=== PATIENT | female | born 1985 | race American Indian/Alaskan Native ===

== ENCOUNTER 2021-05-01 15:54 | Emergency (ER) | payer MEDICAID ==
--- NOTE | 2021-05-01 19:39 | Emergency Department Report ---
ED Female HPI - General Chief complaint: Abdominal Pain Stated complaint: Abdominal Pain Time Seen by Provider: 05/01/21 19:23 Source: patient Mode of arrival: Ambulatory Limitations: No Limitations - History of Present Illness Initial comments: The patient was evaluated in the emergency department for symptoms described in the history of present illness. He/she was evaluated in the context of the global COVID-19 pandemic, which necessitated consideration that the patient might be at risk for infection with the virus that causes COVID-19. Insti tutional protocols and algorithms that pertain to the evaluation of patients at risk for COVID-19 are in a state of rapid change based on information released by regulatory bodies including the CDC and federal and state organizations. These policies and algorithms were followed during the patient's care in the emergency department. Please note that these policies, procedures and recommendations changed on a rapid basis. 35-year-old morbid obese -[place] female presents to the emergency room complaining of sharp pelvic pain. Patient states she took a home test x2 and both were positive. Patient reports she has a history of fibroids and a felt like pressure. Patient reports that she recent delivered a baby 5 months ago. She is 8 para 3 with 5 miscarriages. Patient denies any vaginal bleeding denies any vaginal discharge. No chest pain no shortness of breathing no nausea no vomiting or diarrhea. MD Complaint: pelvic pain Onset/Timin -: days(s) Location: suprapubic Radiation: suprapubic Severity scale (0 -10): 8 Quality: sharp Consistency: intermittent Improves with: none Worsens with: none Are you Now?: Yes (Irregular menstrual cycle delivered 5 months ago) Associated Symptoms: denies other symptoms - Related Data Sexually active: Yes : 8 Para: 3 A: 5 Previous Rx's Medication Instructions Recorded Last Taken Type Nitrofurantoin [place]/M-Cryst 100 mg PO Q12HR 7 Days #14 capsule 05/01/21 Unknown Rx [Macrobid CAP] Vit-Fe Fumar-FA [ 1 tab PO QDAY #90 tablet 05/01/21 Unknown Rx Vitamin] Allergies Allergy/AdvReac Type Severity Reaction Status Date / Time No Known Allergies Allergy Unverified 05/01/21 16:56 ED Review of Systems ROS: Stated complaint: Abdominal Pain Other details as noted in HPI Comment: All other systems reviewed and negative ED Past Medical Hx - Past Medical History Previous Medical History?: Yes Additional medical history: FIBRIODS - Surgical History Past Surgical History?: Yes - Medications Home Medications: Home Medications Medication Instructions Recorded Confirmed Last Taken Type Nitrofurantoin [place]/M-Cryst 100 mg PO Q12HR 7 Days #14 capsule 05/01/21 Unknown Rx [Macrobid CAP] Vit-Fe Fumar-FA [ 1 tab PO QDAY #90 tablet 05/01/21 Unknown Rx Vitamin] ED Physical Exam - General Limitations: No Limitations General appearance: alert, in no apparent distress - Head Head exam: Present: atraumatic, normocephalic - Eye Eye exam: Present: normal appearance - ENT ENT exam: Present: mucous membranes moist - Neck Neck exam: Present: normal inspection - Respiratory Respiratory exam: Present: normal lung sounds bilaterally. Absent: respiratory distress - Cardiovascular Cardiovascular Exam: Present: regular rate, normal rhythm. Absent: systolic murmur, diastolic murmur, rubs, gallop - GI/Abdominal GI/Abdominal exam: Present: soft, normal bowel sounds - Extremities Exam Extremities exam: Present: normal inspection - Back Exam Back exam: Present: normal inspection - Neurological Exam Neurological exam: Present: alert, oriented X3 - Psychiatric Psychiatric exam: Present: normal affect, normal mood - Skin Skin exam: Present: warm, dry, intact, normal color. Absent: rash ED Course Vital Signs 05/01/21 17:00 Temperature 97.7 F Pulse Rate 109 H Respiratory 18 Rate Blood Pressure 122/80 [Right] O2 Sat by Pulse 98 Oximetry ED Medical Decision Making - Lab Data Result diagrams: 05/01/21 19:36 05/01/21 19:36 - Radiology Data Radiology results: report reviewed [facility] [address] [place] [address] Ultrasound Report Signed Patient: MARY INGRAM MR#: [id number] 54 : 1985 Acct:[id number] Age/Sex: 35 / F ADM Date: 05/01/21 Loc: ED Attending Dr: Ordering Physician: JR WORKMAN Date of Service: 05/01/21 Procedure(s): US OB transvaginal Accession Number(s): [id number] cc: JR WORKMAN ULTRASOUND PELVIS INDICATION: +preg at home pelvic pain. TECHNIQUE: Transabdominal. Duplex Color Doppler used: Yes. COMPARISON: None available FINDINGS: Uterus: Present. Size: 10.8 x 8.8 x 9.5 cm. Endometrial complex: Viable intrauterine dated 11 weeks 2 days. Clinical age is 10 weeks. heart tones are 167 bpm. Mass lesions: None. Additional findings: None. Right Ovary -- Normal. Blood flow: Normal. Cyst or mass: None. Left Ovary--nonvisualized. Urinary Bladder: Normal. Free Fluid: None. Additional Findings: None. IMPRESSION: 1. Viable intrauterine dated 11 weeks 2 days without complication. 2. Left ovary nonvisualized. No left adnexal abnormality. Signer Name: Geo Bey MD Signed: 05/01/2021 9:17 PM Workstation Name: [id number] Transcribed By: ZENY Dictated By: Geo Bey MD Electronically Authenticated By: Geo Bey MD Signed Date/Time: 05/01/212116 DD/ 14 TD/TT: Print Cancel - Medical Decision Making 35-year-old morbid obese -[place] female presents to the emergency room complaining of sharp pelvic pain. Patient states she took a home test x2 and both were positive. Patient reports she has a history of fibroids and a felt like pressure. Patient reports that she recent delivered a baby 5 months ago. She is 8 para 3 with 5 miscarriages. Patient denies any vaginal bleeding denies any vaginal discharge. No chest pain no shortness of breathing no nausea no vomiting or diarrhea. Ultrasound shows that you are 11 weeks . You have a mild urinary tract infection which I will treat. Is very important for you to follow-up with an [facility] APPLIANCE REPAIR TECHNICIAN. I have listed several below for your convenience. Please start taking her vitamins. Be sure to increase your fluid intake. Critical care attestation.: If time is entered above; I have spent that time in minutes in the direct care of this critically ill patient, excluding procedure time. ED Disposition Clinical Impression: Pelvic pain, , UTI (urinary tract infection) during Disposition: 01 HOME / SELF CARE / HOMELESS Is pt being admited?: No Does the pt Need Aspirin: No Condition: Stable Instructions: Abdominal Pain (ED), Care, Pelvic Pain, Female, [id number] Additional Instructions: Ultrasound shows that you are 11 weeks . You have a mild urinary tract infection which I will treat. Is very important for you to follow-up with an COOKING APPLIANCE REPAIR TECHNICIAN. I have listed several below for your convenience. Please start taking her vitamins. Be sure to increase your fluid intake. Prescriptions: Nitrofurantoin [place]/M-Cryst [Macrobid CAP] 100 mg PO Q12HR 7 Days #14 capsule Vit-Fe Fumar-FA [ Vitamin] 1 tab PO QDAY #90 tablet Referrals: [facility] [Primary Care Provider] - 3-5 Days [facility] [Provider Group] - 3-5 Days [facility] [Provider Group] - 3-5 Days [facility]PAIR TE[facility]NIC[facility] [Provider Group] - 3-5 Days Time of Disposition: 21:30
[2021-05-01 19:57] LABS: Basophils # (Auto) 0.1 K/mm3 (0.0-0.1); Basophils % (Auto) 0.9 % (0.0-1.8); Eosinophils # (Auto) 0.3 K/mm3 (0.0-0.4); Eosinophils % (Auto) 3.1 % (0.0-4.3); Hematocrit 38.2 % (30.3-42.9); Hemoglobin 12.7 gm/dl (10.1-14.3); Lymphocytes # (Auto) 2.3 K/mm3 (1.2-5.4); Lymphocytes % (Auto) 21.1 % (13.4-35.0); Mean Corpuscular HGB Conc 33 % (30-34); Mean Corpuscular Volume 91 fl (79-97); Monocytes # (Auto) 0.9 K/mm3 (0.0-0.8); Monocytes % (Auto) 8.5 % (0.0-7.3); Platelet Count 281 K/mm3 (140-440); Red Blood Count 4.18 M/mm3 (3.65-5.03); Red Cell Distribution Width 15.4 % (13.2-15.2)
[2021-05-01 20:16] LABS: Alanine Aminotransferase 17 units/L (7-56); Albumin 4.1 g/dL (3.9-5); Blood Urea Nitrogen 8 mg/dL (7-17); Calcium 9.2 mg/dL (8.4-10.2); Hemolysis Index 0
[2021-05-01 20:33] LABS: BUN/Creatinine Ratio 16
[2021-05-01 20:57] LABS: Bilirubin,Urine NEG (Negative); Blood,Urine NEG (Negative); Color,Urine Yellow (Yellow); Mucus,Urine 3+ /HPF
--- NOTE | 2021-05-01 21:22 | Ultrasound Report ---
ULTRASOUND PELVIS INDICATION: +preg at home pelvic pain. TECHNIQUE: Transabdominal. Duplex Color Doppler used: Yes. COMPARISON: None available FINDINGS: Uterus: Present. Size: 10.8 x 8.8 x 9.5 cm. Endometrial complex: Viable intrauterine dated 11 weeks 2 days. Clinical age is 10 weeks. F etal heart tones are 167 bpm. Mass lesions: None. Additional findings: None. Right Ovary -- Normal. Blood flow: Normal. Cyst or mass: None. Left Ovary--nonvisualized. Urinary Bladder: Normal. Free Fluid: None. Additional Findings: None. IMPRESSION: 1. Viable intrauterine dated 11 weeks 2 days without complication. 2. Left ovary nonvisualized. No left adnexal abnormality. Signer Name: Geo Bey MD Signed: 05/01/2021 9:17 PM Workstation Name: [id number]
[2021-05-01 21:43] VITALS: BP 126/92
== END 2021-05-01 21:47 | disposition home or self-care (01) ==
LOC: ED 15:54
DX: O26.891 Other specified pregnancy related conditions, first trimester (principal); R10.30 Lower abdominal pain, unspecified; R10.2 Pelvic and perineal pain; O23.41 Unspecified infection of urinary tract in pregnancy, first trimester; N39.0 Urinary tract infection, site not specified; Z98.890 Other specified postprocedural states; Z3A.11 11 weeks gestation of pregnancy
CPT/HCPCS: 36415; 76801; 76817; 80053; 81001; 84702; 85025; 86900; 86901; 99284